=== PATIENT | male | born 1990 | race Hispanic/Latino ===

== ENCOUNTER 2021-05-07 16:01 | Emergency (ER) | payer SELFPAY ==
[2021-05-07 16:10] VITALS: BP 125/90
[2021-05-07] MEDS ORDERED: SODIUM CHLORIDE 0.9% 1000 ML 1,000 ML IV ONE (18:23)
[2021-05-07] MEDS ORDERED: FAMOTIDINE 20 MG/2 ML INJ IV ONE (18:23)
[2021-05-07] MEDS ORDERED: ONDANSETRON 4 MG/2 ML INJ IV ONE (18:23)
--- NOTE | 2021-05-07 18:31 | Event Note ---
ED Screening Note Date of service: 05/07/21 Time: 18:29 ED Screening Note: Patient presents with complaints of intermittent chest pain starting this morning Patient states he has had nausea vomiting and diarrhea for the past few days He denies any hematemesis/coffee-ground emesis, shortness of breath, hemoptysis, or family history of heart disease No chest pain at current per patient He reports his main concern is dehydration No abdominal pain per patient He states he is vaccinated against COVID-19 He denies any other past medical history This initial assessment/diagnostic orders/clinical plan/treatment(s) is/are subject to change based on patients health status, clinical progression and re- assessment by fellow clinical providers in the ED. Further treatment and workup at subsequent clinical providers discretion. Patient/guardian urged not to elope from the ED as their condition may be serious if not clinically assessed and managed. Initial orders include: Labs Meds
[2021-05-07 18:40] LABS: Basophils # (Auto) 0.1 K/mm3 (0.0-0.1); Basophils % (Auto) 0.8 % (0.0-1.8); Eosinophils # (Auto) 0.2 K/mm3 (0.0-0.4); Eosinophils % (Auto) 1.5 % (0.0-4.3); Hematocrit 48.2 % (35.5-45.6); Hemoglobin 16.1 gm/dl (11.8-15.2); Lymphocytes # (Auto) 2.3 K/mm3 (1.2-5.4); Lymphocytes % (Auto) 21.8 % (13.4-35.0); Mean Corpuscular HGB Conc 34 % (32-34); Mean Corpuscular Volume 84 fl (84-94); Monocytes # (Auto) 0.9 K/mm3 (0.0-0.8); Monocytes % (Auto) 7.9 % (0.0-7.3); Platelet Count 315 K/mm3 (140-440); Red Blood Count 5.71 M/mm3 (3.65-5.03); Red Cell Distribution Width 13.2 % (13.2-15.2)
--- NOTE | 2021-05-07 18:41 | XRay Report ---
CHEST 2 VIEWS INDICATION / CLINICAL INFORMATION: chest pain. COMPARISON: None available. FINDINGS: SUPPORT DEVICES: None. HEART / MEDIASTINUM: No significant abnormality. LUNGS / PLEURA: No significant pulmonary or pleural abnormality. No pneumothorax. ADDITIONAL FINDINGS: No significant additional findings. IMPRESSION: 1. No acute findings. Signer Name: Ed Thomas MD Signed: 05/07/2021 6:36 PM Workstation Name: [id number]
[2021-05-07 19:11] LABS: Alanine Aminotransferase 16 units/L (7-56); Albumin 4.5 g/dL (3.9-5); BUN/Creatinine Ratio 9; Blood Urea Nitrogen 10 mg/dL (9-20); Calcium 9.4 mg/dL (8.4-10.2); Hemolysis Index 18
--- NOTE | 2021-05-08 12:12 | Electrocardiograph Report ---
[facility] Test Date: 2021-05-07 Test Time: 16:06:12 Pat Name: JOHN PALOMARES Department: Room: Gender: M Computer System Technician: MARILYN : 1990 Requested By: ANGIE [address]RE[address] Order Number: [id number] Reading MD: Donal Coburn Measurements Intervals [place] Rate: 94 P: 79 W[place]: 137 QRS: 66 QRSD: 93 T: 41 QT: 329 QTc: 411 Interpretive Statements Sinus rhythm No previous ECG available for comparison Electronically Signed On 05-08-2021 12:12:32 EST by Donal Coburn
== END 2021-05-07 20:43 | disposition left against medical advice (07) ==
LOC: ED 16:01
DX: R07.9 Chest pain, unspecified (principal); Z53.21 Procedure and treatment not carried out due to patient leaving prior to being seen by health care provider
CPT/HCPCS: 36415; 71046; 80053; 83690; 84484; 85025; 93005; 96361; 96374; 96375; J2405; J3490; J7030; Q0162